=== PATIENT | male | born 1995 | race African-American/Black ===

== ENCOUNTER 2018-09-15 17:00 | Emergency (ER) | payer SELFPAY ==
[~2018-09-15] VITALS: Ht 165.1 cm; Wt 68.1 kg
[2018-09-15 17:41] VITALS: BP 119/62
[2018-09-15] MEDS ORDERED: SODIUM CHLORIDE 0.9% 1,000 ML IV ONE (19:52)
== END 2018-09-15 20:15 | disposition left against medical advice (07) ==
LOC: ER 19:17
DX: R10.9 Unspecified abdominal pain (principal); Z53.21 Procedure and treatment not carried out due to patient leaving prior to being seen by health care provider
CPT/HCPCS: J7030